=== PATIENT | male | born 2000 | race Caucasian/White ===

== ENCOUNTER 2022-04-10 14:40 | Emergency (ER) | payer MEDICAID ==
[~2022-04-10] VITALS: Ht 185.4 cm; Wt 65.4 kg
[2022-04-10 14:54] VITALS: BP 120/73
== END 2022-04-10 15:50 | disposition left against medical advice (07) ==
LOC: ER 14:40
DX: M79.672 Pain in left foot (principal); Z53.21 Procedure and treatment not carried out due to patient leaving prior to being seen by health care provider